=== PATIENT | male | born 1955 | race Caucasian/White ===

== ENCOUNTER 2019-07-11 01:32 | Inpatient (IN) ==
[2019-07-11] MEDS ORDERED: Naloxone 0.4 MG/ML INJ IVP PRN (04:33)
[2019-07-11 04:34] LABS: Basophils # 0.1 K/mcL (0.0-0.2); Basophils % 0.9 %; Eosinophils # 0.2 K/mcL (0.0-0.6); Eosinophils % 2.2 %; Hematocrit 33.4 % (37.5-50.1); Hemoglobin 11.5 g/dL (12.9-16.9); Lymphocytes # 1.7 K/mcL (0.6-4.6); Lymphocytes % 20.7 %; Mean Corpuscular HGB Conc 34.4 g/dL (31.6-35.5); Mean Corpuscular Hemoglobin 31.6 pg (28.0-33.3); Mean Corpuscular Volume 91.8 fL (83.0-100.0); Mean Platelet Volume 10.1 fL (9.4-12.4); Monocytes # 0.9 K/mcL (0.0-1.3); Monocytes % 10.5 %; Neutrophils # 5.3 K/mcL (1.6-8.9); Platelet Count 216 K/mcL (140-400); Red Blood Count 3.64 M/mcL (4.19-5.50); Segmented Neutrophils % 64.7 %; White Blood Count 8.2 K/mcL (4.3-11.1)
[2019-07-11] MEDS ORDERED: *HR* LORazepam 2 MG/ML VIAL IVP PRN ×2 (04:38)
[2019-07-11] MEDS ORDERED: *HR* Dextrose 50 % in Water (Syg) 50 ML SYRINGE IVP PRN (04:43)
[2019-07-11] MEDS ORDERED: D5% in Water 1,000 ML IVC PRN (04:43)
[2019-07-11] MEDS ORDERED: Dextrose Gel 15 GM/37.5 ML TUBE PO PRN ×2 (04:43)
[2019-07-11] MEDS: *HR* LORazepam 2 MG/ML VIAL IVP PRN ×2 (04:47→15:29)
[2019-07-11 04:54] LABS: Alanine Aminotransferase 200 Units/L (7-52); Albumin 3.4 g/dL (3.5-5.7); Alkaline Phosphatase 80 Units/L (34-104); Aspartate Amino Transferase 220 Units/L (13-39); BUN/Creatinine Ratio 11 (6-26); Bilirubin,Total 0.6 mg/dL (0.3-1.0); Blood Urea Nitrogen 12 mg/dL (8-23); Calcium 8.5 mg/dL (8.6-10.3); Carbon Dioxide 31 mEq/L (23-29); Chloride 87 mEq/L (98-107); Globulin 3.4 g/dL (2.4-3.5); Glucose 126 mg/dL (70-105); Magnesium 1.6 mg/dL (1.6-2.6); Osmolality,Calculated 257 (280-300); Phosphorous 2.5 mg/dL (2.7-4.5); Potassium 3.3 mEq/L (3.5-5.1); Sodium 123 mEq/L (136-145); Total Protein 6.8 g/dL (6.4-8.9); eGFR For African Americans > 60 (> 60); eGFR For Non-African Americans > 60 (> 60)
[2019-07-11] MEDS: Insulin LISPRO 300 UNITS/3 ML VIAL SQ SCH ×4 (05:50→20:31)
[2019-07-11] MEDS ORDERED: Potassium Chloride 40 MEQ, Lidocaine 1% 2 ML in 0.9 % Sodium Chloride 500 ML IVPB ONE (06:00)
[2019-07-11] MEDS ORDERED: Potassium Chloride Elixir 20 MEQ/15 ML UDC PO ONE (07:23)
[2019-07-11] MEDS: Potassium Phosphate 44 MEQ in 0.9 % Sodium Chloride 250 ML IVPB ONE ×2 (08:21→11:36)
[2019-07-11] MEDS: Folic Acid 1 MG TABLET PO SCH (08:22)
[2019-07-11] MEDS: Thiamine (B-1) 100 MG TABLET PO SCH (08:22)
[2019-07-11] MEDS: 0.9 % Sodium Chloride 1,000 ML IVC SCH (08:23)
[2019-07-11 09:11] LABS: INR 1.2; Prothrombin Time 13.1 Seconds (9.4-12.1)
[2019-07-11 10:43] LABS: Estimated Average Glucose 114 mg/dl
[2019-07-11] MEDS: Acetaminophen 325 MG TABLET PO PRN (12:17)
[2019-07-11 14:45] LABS: BUN/Creatinine Ratio 12 (6-26); Blood Urea Nitrogen 13 mg/dL (8-23); Calcium 8.3 mg/dL (8.6-10.3); Carbon Dioxide 28 mEq/L (23-29); Chloride 95 mEq/L (98-107); Glucose 148 mg/dL (70-105); Osmolality,Calculated 265 (280-300); Potassium 4.3 mEq/L (3.5-5.1); Sodium 126 mEq/L (136-145); eGFR For African Americans > 60 (> 60); eGFR For Non-African Americans > 60 (> 60)
[2019-07-11] MEDS: Cefepime HCl 2,000 MG in Water for inj. (sterile) 20 ML IVP SCH (15:29)
[2019-07-11] MEDS: Silvasorb 44.4 ML TUBE TP SCH (15:43)
[2019-07-11 17:33] LABS: BUN/Creatinine Ratio 13 (6-26); Blood Urea Nitrogen 14 mg/dL (8-23); Calcium 8.5 mg/dL (8.6-10.3); Carbon Dioxide 26 mEq/L (23-29); Chloride 97 mEq/L (98-107); Glucose 122 mg/dL (70-105); Osmolality,Calculated 266 (280-300); Potassium 4.4 mEq/L (3.5-5.1); Sodium 127 mEq/L (136-145); eGFR For African Americans > 60 (> 60); eGFR For Non-African Americans > 60 (> 60)
[2019-07-11] MEDS: Ketorolac 15 MG/ML VIAL IVP PRN (18:11)
[2019-07-11] MEDS: cloNIDine HCL 0.1 MG TABLET PO SCH (20:33)
[2019-07-11] MEDS: Gabapentin 300 MG CAPSULE PO SCH (20:33)
[2019-07-11 21:14] LABS: BUN/Creatinine Ratio 13 (6-26); Blood Urea Nitrogen 14 mg/dL (8-23); Calcium 8.4 mg/dL (8.6-10.3); Carbon Dioxide 27 mEq/L (23-29); Chloride 96 mEq/L (98-107); Glucose 126 mg/dL (70-105); Osmolality,Calculated 264 (280-300); Potassium 4.3 mEq/L (3.5-5.1); Sodium 126 mEq/L (136-145); eGFR For African Americans > 60 (> 60); eGFR For Non-African Americans > 60 (> 60)
[2019-07-12 02:03] LABS: Hematocrit 29.1 % (37.5-50.1); Mean Corpuscular HGB Conc 34.4 g/dL (31.6-35.5); Mean Corpuscular Hemoglobin 32.3 pg (28.0-33.3); Mean Corpuscular Volume 93.9 fL (83.0-100.0); Mean Platelet Volume 10.5 fL (9.4-12.4); Platelet Count 142 K/mcL (140-400); Red Cell Distribution Width 13.2 % (11.5-14.5); White Blood Count 5.4 K/mcL (4.3-11.1)
[2019-07-12 02:23] LABS: Alanine Aminotransferase 170 Units/L (7-52); Albumin 2.9 g/dL (3.5-5.7); Alkaline Phosphatase 65 Units/L (34-104); Aspartate Amino Transferase 179 Units/L (13-39); BUN/Creatinine Ratio 14 (6-26); Bilirubin,Direct 0.2 mg/dL (0.0-0.2); Bilirubin,Indirect 0.3 mg/dL (0.0-1.0); Bilirubin,Total 0.5 mg/dL (0.3-1.0); Blood Urea Nitrogen 14 mg/dL (8-23); Carbon Dioxide 27 mEq/L (23-29); Chloride 96 mEq/L (98-107); Glucose 91 mg/dL (70-105); Osmolality,Calculated 266 (280-300); Potassium 4.3 mEq/L (3.5-5.1); Sodium 128 mEq/L (136-145); Total Protein 5.9 g/dL (6.4-8.9); eGFR For African Americans > 60 (> 60); eGFR For Non-African Americans > 60 (> 60)
[2019-07-12 02:47] LABS: Folate 8.8 ng/mL (3.0-16.0)
[2019-07-12] MEDS: Cefepime HCl 2,000 MG in Water for inj. (sterile) 20 ML IVP SCH (03:31)
[2019-07-12] MEDS: Ketorolac 15 MG/ML VIAL IVP PRN ×3 (03:34→17:11)
[2019-07-12 05:39] LABS: Amphetamine Screen,Urine Negative ng/mL (Cutoff=1000); Barbiturate Screen,Urine Negative ng/mL (Cutoff=200); Benzodiazepines Screen,Urine Negative ng/mL (Cutoff=200); Cannabinoid Screen,Urine Negative ng/mL (Cutoff = 50); Cocaine Screen,Urine Negative ng/mL (Cutoff= 300); Opiate Screen,Urine Negative ng/mL (Cutoff=300); Phencyclidine Screen,Urine Negative ng/mL (Cutoff=25); Sodium, Urine 58.1 mEq/L
[2019-07-12] MEDS: Gabapentin 300 MG CAPSULE PO SCH ×3 (08:36→19:52)
[2019-07-12] MEDS: Aspirin Enteric Coated 81 MG Tablet PO SCH (08:36)
[2019-07-12] MEDS: cloNIDine HCL 0.1 MG TABLET PO SCH ×3 (08:36→19:52)
[2019-07-12] MEDS: Thiamine (B-1) 100 MG TABLET PO SCH (08:36)
[2019-07-12] MEDS: Insulin LISPRO 300 UNITS/3 ML VIAL SQ SCH ×4 (08:36→19:48)
[2019-07-12] MEDS: Folic Acid 1 MG TABLET PO SCH (08:36)
[2019-07-12] MEDS: 0.9 % Sodium Chloride 1,000 ML IVC SCH ×3 (08:37→18:44)
[2019-07-12] MEDS: Silvasorb 44.4 ML TUBE TP SCH (08:37)
[2019-07-12] MEDS: *HR* LORazepam 2 MG/ML VIAL IVP PRN (08:46)
[2019-07-12] MEDS: Acetaminophen 325 MG TABLET PO PRN (14:45)
[2019-07-12 16:14] LABS: BUN/Creatinine Ratio 11 (6-26); Blood Urea Nitrogen 15 mg/dL (8-23); Calcium 8.5 mg/dL (8.6-10.3); Carbon Dioxide 28 mEq/L (23-29); Chloride 96 mEq/L (98-107); Glucose 170 mg/dL (70-105); Osmolality,Calculated 269 (280-300); Potassium 3.8 mEq/L (3.5-5.1); Sodium 127 mEq/L (136-145); eGFR For African Americans > 60 (> 60); eGFR For Non-African Americans 51 (> 60)
[2019-07-12] MEDS ORDERED: *HR* LORazepam 2 MG/ML VIAL IVP ONE (23:14)
[2019-07-12] MEDS: Nicotine 2 MG GUM BC PRN (23:32)
[2019-07-13] MEDS: Nicotine 2 MG GUM BC PRN ×3 (02:00→17:31)
[2019-07-13] MEDS: 0.9 % Sodium Chloride 1,000 ML IVC SCH ×2 (02:00→09:32)
[2019-07-13] MEDS: Ketorolac 15 MG/ML VIAL IVP PRN ×2 (02:38→11:18)
[2019-07-13 07:33] LABS: BUN/Creatinine Ratio 14 (6-26); Blood Urea Nitrogen 15 mg/dL (8-23); Calcium 8.3 mg/dL (8.6-10.3); Carbon Dioxide 26 mEq/L (23-29); Chloride 100 mEq/L (98-107); Glucose 109 mg/dL (70-105); Osmolality,Calculated 273 (280-300); Sodium 131 mEq/L (136-145); eGFR For African Americans > 60 (> 60); eGFR For Non-African Americans > 60 (> 60)
[2019-07-13 07:38] LABS: Hematocrit 29.4 % (37.5-50.1); Hemoglobin 10.1 g/dL (12.9-16.9); Mean Corpuscular HGB Conc 34.4 g/dL (31.6-35.5); Mean Corpuscular Hemoglobin 32.4 pg (28.0-33.3); Mean Corpuscular Volume 94.2 fL (83.0-100.0); Mean Platelet Volume 10.2 fL (9.4-12.4); Platelet Count 141 K/mcL (140-400); Red Blood Count 3.12 M/mcL (4.19-5.50); Red Cell Distribution Width 13.1 % (11.5-14.5)
[2019-07-13] MEDS: Insulin LISPRO 300 UNITS/3 ML VIAL SQ SCH ×4 (09:33→21:05)
[2019-07-13] MEDS: Thiamine (B-1) 100 MG TABLET PO SCH (09:39)
[2019-07-13] MEDS: Aspirin Enteric Coated 81 MG Tablet PO SCH (09:39)
[2019-07-13] MEDS: Gabapentin 300 MG CAPSULE PO SCH ×3 (09:39→20:52)
[2019-07-13] MEDS: Folic Acid 1 MG TABLET PO SCH (09:39)
[2019-07-13] MEDS: cloNIDine HCL 0.1 MG TABLET PO SCH ×3 (09:39→20:52)
[2019-07-13] MEDS: Silvasorb 44.4 ML TUBE TP SCH (09:40)
[2019-07-13] MEDS ORDERED: Td (TENIVAC) Vaccine 0.5 ML VIAL IM ONE (12:56)
[2019-07-13] MEDS: *HR* LORazepam 1 MG TABLET PO PRN ×2 (14:48→22:58)
[2019-07-13] MEDS: *HR* Heparin 5,000 UNIT/ML VIAL SQ SCH ×2 (14:48→20:52)
[2019-07-13] MEDS: lisinopriL 10 MG TABLET PO SCH (14:48)
[2019-07-13] MEDS: hydrALAZINE 25 MG TABLET PO SCH ×2 (17:26→20:52)
[2019-07-14] MEDS: Nicotine 2 MG GUM BC PRN (00:12)
[2019-07-14] MEDS ORDERED: *HR* LORazepam 2 MG/ML VIAL IVP ONE ×2 (00:35→04:39)
[2019-07-14] MEDS: *HR* Heparin 5,000 UNIT/ML VIAL SQ SCH ×3 (05:11→20:22)
[2019-07-14 05:19] LABS: Basophils # 0.1 K/mcL (0.0-0.2); Basophils % 1.3 %; Eosinophils # 0.4 K/mcL (0.0-0.6); Eosinophils % 7.3 %; Hematocrit 26.6 % (37.5-50.1); Hemoglobin 9.1 g/dL (12.9-16.9); Immature Granulocytes % 0.9 % (0-4); Lymphocytes # 1.2 K/mcL (0.6-4.6); Lymphocytes % 20.7 %; Mean Corpuscular HGB Conc 34.2 g/dL (31.6-35.5); Mean Corpuscular Hemoglobin 32.3 pg (28.0-33.3); Mean Corpuscular Volume 94.3 fL (83.0-100.0); Mean Platelet Volume 10.6 fL (9.4-12.4); Monocytes # 0.5 K/mcL (0.0-1.3); Monocytes % 9.1 %; Neutrophils # 3.4 K/mcL (1.6-8.9); Platelet Count 144 K/mcL (140-400); Red Blood Count 2.82 M/mcL (4.19-5.50); Red Cell Distribution Width 13.2 % (11.5-14.5); Segmented Neutrophils % 60.7 %; White Blood Count 5.6 K/mcL (4.3-11.1)
[2019-07-14 05:30] LABS: BUN/Creatinine Ratio 12 (6-26); Blood Urea Nitrogen 13 mg/dL (8-23); Carbon Dioxide 27 mEq/L (23-29); Chloride 102 mEq/L (98-107); Glucose 128 mg/dL (70-105); Magnesium 1.4 mg/dL (1.6-2.6); Osmolality,Calculated 272 (280-300); Potassium 3.9 mEq/L (3.5-5.1); Sodium 130 mEq/L (136-145); eGFR For African Americans > 60 (> 60); eGFR For Non-African Americans > 60 (> 60)
[2019-07-14] MEDS: Insulin LISPRO 300 UNITS/3 ML VIAL SQ SCH ×4 (08:06→20:15)
[2019-07-14] MEDS: Gabapentin 300 MG CAPSULE PO SCH ×3 (09:28→20:22)
[2019-07-14] MEDS: hydrALAZINE 25 MG TABLET PO SCH ×4 (09:28→20:22)
[2019-07-14] MEDS: Folic Acid 1 MG TABLET PO SCH (09:28)
[2019-07-14] MEDS: Thiamine (B-1) 100 MG TABLET PO SCH (09:28)
[2019-07-14] MEDS: lisinopriL 10 MG TABLET PO SCH (09:28)
[2019-07-14] MEDS: Aspirin Enteric Coated 81 MG Tablet PO SCH (09:28)
[2019-07-14] MEDS: cloNIDine HCL 0.1 MG TABLET PO SCH ×3 (09:28→20:22)
[2019-07-14] MEDS: *HR* OxyCODONE Immed Rel 5 MG TABLET PO PRN ×3 (09:28→21:15)
[2019-07-14] MEDS: Nicotine 21 MG PATCH.TD24 TD SCH (09:29)
[2019-07-14] MEDS: Silvasorb 44.4 ML TUBE TP SCH (11:58)
[2019-07-14] MEDS: *HR* LORazepam 1 MG TABLET PO PRN (18:33)
[2019-07-15] MEDS: *HR* LORazepam 1 MG TABLET PO PRN ×2 (03:09→13:25)
[2019-07-15] MEDS: *HR* Heparin 5,000 UNIT/ML VIAL SQ SCH ×3 (05:42→22:28)
[2019-07-15 07:42] LABS: Basophils # 0.1 K/mcL (0.0-0.2); Basophils % 1.5 %; Eosinophils # 0.4 K/mcL (0.0-0.6); Eosinophils % 6.8 %; Hematocrit 29.9 % (37.5-50.1); Hemoglobin 9.9 g/dL (12.9-16.9); Immature Granulocytes % 1.1 % (0-4); Lymphocytes # 1.2 K/mcL (0.6-4.6); Lymphocytes % 21.2 %; Mean Corpuscular HGB Conc 33.1 g/dL (31.6-35.5); Mean Corpuscular Hemoglobin 31.5 pg (28.0-33.3); Mean Corpuscular Volume 95.2 fL (83.0-100.0); Mean Platelet Volume 10.2 fL (9.4-12.4); Monocytes # 0.5 K/mcL (0.0-1.3); Monocytes % 8.6 %; Neutrophils # 3.3 K/mcL (1.6-8.9); Platelet Count 149 K/mcL (140-400); Red Blood Count 3.14 M/mcL (4.19-5.50); Red Cell Distribution Width 13.7 % (11.5-14.5); Segmented Neutrophils % 60.8 %; White Blood Count 5.5 K/mcL (4.3-11.1)
[2019-07-15 07:46] LABS: BUN/Creatinine Ratio 13 (6-26); Blood Urea Nitrogen 12 mg/dL (8-23); Calcium 8.6 mg/dL (8.6-10.3); Carbon Dioxide 25 mEq/L (23-29); Chloride 102 mEq/L (98-107); Glucose 111 mg/dL (70-105); Magnesium 1.6 mg/dL (1.6-2.6); Osmolality,Calculated 274 (280-300); Potassium 3.9 mEq/L (3.5-5.1); Sodium 132 mEq/L (136-145); eGFR For African Americans > 60 (> 60); eGFR For Non-African Americans > 60 (> 60)
[2019-07-15] MEDS: Insulin LISPRO 300 UNITS/3 ML VIAL SQ SCH ×2 (07:47→11:41)
[2019-07-15] MEDS: *HR* OxyCODONE Immed Rel 5 MG TABLET PO PRN ×2 (07:49→14:33)
[2019-07-15] MEDS ORDERED: *HR* OxyCODONE Immed Rel 5 MG TABLET PO ONE (08:56)
[2019-07-15] MEDS: hydrALAZINE 25 MG TABLET PO SCH ×4 (09:01→22:27)
[2019-07-15] MEDS: Thiamine (B-1) 100 MG TABLET PO SCH (09:02)
[2019-07-15] MEDS: cloNIDine HCL 0.1 MG TABLET PO SCH (09:02)
[2019-07-15] MEDS: Gabapentin 300 MG CAPSULE PO SCH ×3 (09:02→22:27)
[2019-07-15] MEDS: lisinopriL 10 MG TABLET PO SCH (09:03)
[2019-07-15] MEDS: Nicotine 21 MG PATCH.TD24 TD SCH (09:03)
[2019-07-15] MEDS: Aspirin Enteric Coated 81 MG Tablet PO SCH (09:03)
[2019-07-15] MEDS: Folic Acid 1 MG TABLET PO SCH (09:03)
[2019-07-15] MEDS ORDERED: Metoprolol XL (24 HR) Succ 25 MG TAB.ER.24H PO SCH (11:30)
[2019-07-15] MEDS: amLODIPine 5 MG TABLET PO SCH (13:23)
[2019-07-15] MEDS: Silvasorb 44.4 ML TUBE TP SCH (13:25)
[2019-07-16] MEDS: *HR* OxyCODONE Immed Rel 5 MG TABLET PO PRN ×3 (00:10→20:09)
[2019-07-16] MEDS: *HR* LORazepam 1 MG TABLET PO PRN ×2 (00:10→20:05)
[2019-07-16] MEDS: *HR* Heparin 5,000 UNIT/ML VIAL SQ SCH ×3 (05:55→21:23)
[2019-07-16] MEDS ORDERED: Gabapentin 300 MG CAPSULE ONE ×2 (09:38→14:49)
[2019-07-16] MEDS ORDERED: *HR* Heparin 5,000 UNIT/ML VIAL ONE (09:38)
[2019-07-16] MEDS ORDERED: Vancomycin 1,000 MG VIAL ONE (09:38)
[2019-07-16] MEDS ORDERED: *HR* LORazepam 1 MG TABLET ONE (09:38)
[2019-07-16] MEDS ORDERED: hydrALAZINE 25 MG TABLET ONE ×2 (09:38)
[2019-07-16] MEDS ORDERED: Metoprolol XL (24 HR) Succ 50 MG TAB.ER.24H PO ONE (09:38)
[2019-07-16] MEDS ORDERED: Nicotine 21 MG PATCH.TD24 ONE (09:38)
[2019-07-16] MEDS ORDERED: amLODIPine 5 MG TABLET ONE (09:38)
[2019-07-16] MEDS ORDERED: Ondansetron 4 MG/2 ML VIAL ONE (12:18)
[2019-07-16] MEDS ORDERED: *HR* OxyCODONE Immed Rel 5 MG TABLET ONE (14:49)
[2019-07-16] MEDS: Aspirin Enteric Coated 81 MG Tablet PO SCH (16:13)
[2019-07-16] MEDS: Folic Acid 1 MG TABLET PO SCH (16:13)
[2019-07-16] MEDS: hydrALAZINE 25 MG TABLET PO SCH ×3 (16:14→21:23)
[2019-07-16] MEDS: Gabapentin 300 MG CAPSULE PO SCH ×2 (16:14→21:24)
[2019-07-16] MEDS: Nicotine 21 MG PATCH.TD24 TD SCH (16:14)
[2019-07-16] MEDS: Metoprolol XL (24 HR) Succ 50 MG TAB.ER.24H PO SCH (16:15)
[2019-07-16] MEDS ORDERED: Ondansetron 4 MG/2 ML VIAL IVP PRN (16:15)
[2019-07-16] MEDS: Silvasorb 44.4 ML TUBE TP SCH (16:15)
[2019-07-16] MEDS: amLODIPine 5 MG TABLET PO SCH (16:15)
[2019-07-16] MEDS: Thiamine (B-1) 100 MG TABLET PO SCH (16:16)
[2019-07-17] MEDS: *HR* OxyCODONE Immed Rel 5 MG TABLET PO PRN ×3 (02:17→17:23)
[2019-07-17] MEDS: *HR* Heparin 5,000 UNIT/ML VIAL SQ SCH ×3 (05:16→20:18)
[2019-07-17] MEDS: *HR* LORazepam 1 MG TABLET PO PRN ×2 (05:50→15:04)
[2019-07-17 07:24] LABS: Basophils # 0.1 K/mcL (0.0-0.2); Basophils % 1.3 %; Eosinophils # 0.3 K/mcL (0.0-0.6); Eosinophils % 3.9 %; Hematocrit 36.8 % (37.5-50.1); Immature Granulocytes % 0.9 % (0-4); Lymphocytes # 1.9 K/mcL (0.6-4.6); Mean Corpuscular HGB Conc 32.1 g/dL (31.6-35.5); Mean Corpuscular Hemoglobin 31.4 pg (28.0-33.3); Mean Corpuscular Volume 97.9 fL (83.0-100.0); Mean Platelet Volume 10.4 fL (9.4-12.4); Monocytes # 0.5 K/mcL (0.0-1.3); Monocytes % 6.7 %; Neutrophils # 4.9 K/mcL (1.6-8.9); Platelet Count 198 K/mcL (140-400); Red Blood Count 3.76 M/mcL (4.19-5.50); Red Cell Distribution Width 14.6 % (11.5-14.5); Segmented Neutrophils % 63.2 %; White Blood Count 7.8 K/mcL (4.3-11.1)
[2019-07-17 07:34] LABS: Hemoglobin 11.8 g/dL (12.9-16.9)
[2019-07-17 07:41] LABS: BUN/Creatinine Ratio 15 (6-26); Blood Urea Nitrogen 15 mg/dL (8-23); Calcium 9.3 mg/dL (8.6-10.3); Carbon Dioxide 26 mEq/L (23-29); Chloride 96 mEq/L (98-107); Glucose 116 mg/dL (70-105); Magnesium 1.6 mg/dL (1.6-2.6); Osmolality,Calculated 272 (280-300); Potassium 4.2 mEq/L (3.5-5.1); Sodium 130 mEq/L (136-145); eGFR For African Americans > 60 (> 60); eGFR For Non-African Americans > 60 (> 60)
[2019-07-17] MEDS: Folic Acid 1 MG TABLET PO SCH (09:30)
[2019-07-17] MEDS: amLODIPine 5 MG TABLET PO SCH (09:30)
[2019-07-17] MEDS: Gabapentin 300 MG CAPSULE PO SCH ×3 (09:30→20:11)
[2019-07-17] MEDS: hydrALAZINE 25 MG TABLET PO SCH ×4 (09:30→20:13)
[2019-07-17] MEDS: Aspirin Enteric Coated 81 MG Tablet PO SCH (09:30)
[2019-07-17] MEDS: Metoprolol XL (24 HR) Succ 50 MG TAB.ER.24H PO SCH (09:30)
[2019-07-17] MEDS: Thiamine (B-1) 100 MG TABLET PO SCH (09:30)
[2019-07-17] MEDS: Nicotine 21 MG PATCH.TD24 TD SCH (09:31)
[2019-07-17] MEDS: Silvasorb 44.4 ML TUBE TP SCH (09:31)
[2019-07-17] MEDS: cloNIDine HCL 0.1 MG TABLET PO SCH ×2 (15:02→20:11)
[2019-07-17] MEDS ORDERED: Artificial Tears SOLN 15 ML BOTTLE BOTH EYES SCH (23:45)
[2019-07-18] MEDS: *HR* LORazepam 1 MG TABLET PO PRN ×2 (02:46→14:36)
[2019-07-18] MEDS: CLEAR EYES NATURAL TEARS 15 ML BOTTLE BOTH EYES SCH ×4 (03:11→17:01)
[2019-07-18] MEDS: Nicotine 2 MG GUM BC PRN ×2 (03:16→06:00)
[2019-07-18] MEDS: *HR* OxyCODONE Immed Rel 5 MG TABLET PO PRN ×2 (03:16→12:33)
[2019-07-18] MEDS: *HR* Heparin 5,000 UNIT/ML VIAL SQ SCH ×2 (05:26→12:34)
[2019-07-18 05:32] LABS: Basophils # 0.1 K/mcL (0.0-0.2); Basophils % 1.5 %; Eosinophils # 0.1 K/mcL (0.0-0.6); Hematocrit 32.8 % (37.5-50.1); Hemoglobin 10.8 g/dL (12.9-16.9); Lymphocytes # 1.5 K/mcL (0.6-4.6); Lymphocytes % 20.8 %; Mean Corpuscular HGB Conc 32.9 g/dL (31.6-35.5); Mean Corpuscular Hemoglobin 32.2 pg (28.0-33.3); Mean Corpuscular Volume 97.9 fL (83.0-100.0); Mean Platelet Volume 9.8 fL (9.4-12.4); Monocytes # 0.6 K/mcL (0.0-1.3); Monocytes % 7.5 %; Platelet Count 165 K/mcL (140-400); Red Blood Count 3.35 M/mcL (4.19-5.50); Red Cell Distribution Width 14.5 % (11.5-14.5); Segmented Neutrophils % 68.2 %; White Blood Count 7.4 K/mcL (4.3-11.1)
[2019-07-18 05:51] LABS: BUN/Creatinine Ratio 17 (6-26); Blood Urea Nitrogen 18 mg/dL (8-23); Calcium 8.8 mg/dL (8.6-10.3); Carbon Dioxide 28 mEq/L (23-29); Chloride 98 mEq/L (98-107); Glucose 104 mg/dL (70-105); Magnesium 1.8 mg/dL (1.6-2.6); Osmolality,Calculated 268 (280-300); Potassium 4.2 mEq/L (3.5-5.1); Sodium 128 mEq/L (136-145); eGFR For African Americans > 60 (> 60); eGFR For Non-African Americans > 60 (> 60)
[2019-07-18] MEDS: Nicotine 21 MG PATCH.TD24 TD SCH (08:05)
[2019-07-18] MEDS: hydrALAZINE 25 MG TABLET PO SCH ×3 (08:05→17:00)
[2019-07-18] MEDS: Gabapentin 300 MG CAPSULE PO SCH ×2 (08:05→14:36)
[2019-07-18] MEDS: Thiamine (B-1) 100 MG TABLET PO SCH (08:05)
[2019-07-18] MEDS: amLODIPine 5 MG TABLET PO SCH (08:05)
[2019-07-18] MEDS: Aspirin Enteric Coated 81 MG Tablet PO SCH (08:05)
[2019-07-18] MEDS: cloNIDine HCL 0.1 MG TABLET PO SCH ×2 (08:05→14:36)
[2019-07-18] MEDS: Metoprolol XL (24 HR) Succ 50 MG TAB.ER.24H PO SCH (08:06)
[2019-07-18] MEDS: Folic Acid 1 MG TABLET PO SCH (08:15)
[2019-07-18] MEDS: Silvasorb 44.4 ML TUBE TP SCH (12:29)
[2019-07-18 14:58] VITALS: BP 124/67
[2019-07-18] MEDS ORDERED: Aminoglycoside Consult 1 EACH MC ONE (17:51)
== END 2019-07-18 17:52 | DRG 720 ==
LOC: 2ANU → SUATTDRO 03:38 → 2ANU 07-12 11:23
PROVIDERS: ADMIT Internal Medicine; ATTEND Pharmacist

== ENCOUNTER 2020-02-21 13:36 | Observation (INO) ==
[2020-02-21] MEDS ORDERED: *HR* Promethazine 25 MG/ML VIAL IM PRN (15:51)
[2020-02-21] MEDS ORDERED: Mag Hydrox/Al Hydrox/Simeth 30 ML UDC PO PRN (15:51)
[2020-02-21] MEDS ORDERED: Acetaminophen 325 MG TABLET PO PRN (15:51)
[2020-02-21] MEDS ORDERED: Ondansetron 4 MG/2 ML VIAL IVP PRN (15:51)
[2020-02-21] MEDS ORDERED: Naloxone 0.4 MG/ML INJ IVP PRN (15:51)
[2020-02-21] MEDS ORDERED: MOM Conc 10 ML UD.LIQ PO PRN (15:51)
[2020-02-21] MEDS ORDERED: *HR* LORazepam 2 MG/ML VIAL IVP PRN ×3 (15:55)
[2020-02-21] MEDS ORDERED: Azithromycin 500 MG in 0.9 % Sodium Chloride 250 ML IVPB SCH (16:00)
[2020-02-21] MEDS ORDERED: cefTRIAXone 1,000 MG in 0.9 % Sodium Chloride Mini Bag 100 ML IVPB SCH (16:00)
[2020-02-21] MEDS ORDERED: Furosemide 20 MG TABLET PO PRN (16:02)
[2020-02-21] MEDS: *HR* Heparin 5,000 UNIT/ML VIAL SQ SCH (16:52)
[2020-02-21] MEDS: *HR* HYDROcodone/Acet 5/325 mg TABLET PO PRN (17:28)
[2020-02-21] MEDS ORDERED: Thiamine (B-1) 100 MG, Folic Acid 1 MG, MVI, adult with vitamin K 10 ML in 0.9 % Sodi... IVPB SCH (18:00)
[2020-02-22] MEDS ORDERED: Melatonin 3 MG TABLET PO ONE (01:06)
[2020-02-22 03:21] VITALS: BP 193/83
[2020-02-22 04:32] LABS: Basophils # 0.1 K/mcL (0.0-0.2); Basophils % 1.7 %; Eosinophils # 0.3 K/mcL (0.0-0.6); Eosinophils % 9.1 %; Hematocrit 36.4 % (37.5-50.1); Hemoglobin 11.8 g/dL (12.9-16.9); Immature Granulocytes % 0.3 % (0-4); Lymphocytes # 1.1 K/mcL (0.6-4.6); Lymphocytes % 30.5 %; Mean Corpuscular HGB Conc 32.4 g/dL (31.6-35.5); Mean Corpuscular Hemoglobin 33.3 pg (28.0-33.3); Mean Corpuscular Volume 102.8 fL (83.0-100.0); Mean Platelet Volume 10.8 fL (9.4-12.4); Monocytes # 0.4 K/mcL (0.0-1.3); Monocytes % 11.4 %; Neutrophils # 1.7 K/mcL (1.6-8.9); Platelet Count 109 K/mcL (140-400); Red Blood Count 3.54 M/mcL (4.19-5.50); Red Cell Distribution Width 14.9 % (11.5-14.5); White Blood Count 3.5 K/mcL (4.3-11.1)
[2020-02-22 04:51] LABS: Alanine Aminotransferase 143 Units/L (7-52); Albumin 2.7 g/dL (3.5-5.7); Albumin/Globulin Ratio 0.7 (1.1-2.2); Alkaline Phosphatase 113 Units/L (34-104); Aspartate Amino Transferase 271 Units/L (13-39); BUN/Creatinine Ratio 16 (6-26); Bilirubin,Total 1.2 mg/dL (0.3-1.0); Blood Urea Nitrogen 16 mg/dL (8-23); Carbon Dioxide 23 mEq/L (23-29); Chloride 105 mEq/L (98-107); Globulin 3.9 g/dL (2.4-3.5); Glucose 110 mg/dL (70-105); Osmolality,Calculated 282 (280-300); Potassium 3.9 mEq/L (3.5-5.1); Sodium 135 mEq/L (136-145); Total Protein 6.6 g/dL (6.4-8.9); eGFR For African Americans > 60 (> 60); eGFR For Non-African Americans > 60 (> 60)
[2020-02-22] MEDS: *HR* Heparin 5,000 UNIT/ML VIAL SQ SCH (06:38)
[2020-02-22] MEDS: *HR* HYDROcodone/Acet 5/325 mg TABLET PO PRN (08:17)
[2020-02-22] MEDS ORDERED: Furosemide 20 MG TABLET PO SCH (09:00)
[2020-02-22] MEDS ORDERED: Thiamine (B-1) 100 MG TABLET PO SCH (09:00)
[2020-02-22] MEDS ORDERED: Metoprolol XL (24 HR) Succ 25 MG TAB.ER.24H PO SCH (09:00)
[2020-02-22] MEDS ORDERED: Folic Acid 1 MG TABLET PO SCH (09:00)
== END 2020-02-22 10:58 | disposition left against medical advice (07) ==
LOC: 3BNU
PROVIDERS: ADMIT Internal Medicine; ATTEND Internal Medicine